=== PATIENT | male | born 1945 | race African-American/Black ===

== ENCOUNTER 2017-09-12 16:22 | Inpatient (IN) | payer MEDICARE ==
[2017-09-12 17:12] LABS: #Basophils 0.1 thou/uL (0.0-0.2); #Eosinphils 0.3 thou/uL (0.0-0.7); #Lymphocytes 2.5 thou/uL (1.20-3.40); #Monocytes 0.7 thou/uL (0.11-0.59); #Neutrophils 3.1 thou/uL (1.40-6.50); %Basophils 1.3 % (0.0-1.0); %Eosinophils 4.5 % (0.0-10.0); %Neutrophils 46.2 % (42.0-75.0); Hemoglobin 13.6 g/dL (14.0-18.0); Mean Corpuscular HGB CONC 31.9 g/dL (32.0-36.0); Mean Corpuscular Hemoglobin 29.6 pg (27.0-31.0); Mean Platelet Volume 8.8 fL (7.4-10.4); Platelet Count 140 thou/uL (130-400); RBC Distribution Width 13.1 % (11.5-14.5); Red Blood Cell (RBC) Count 4.58 mill/uL (4.70-6.10); White Blood Cell (WBC) Count 6.7 thou/uL (4.8-10.8)
[2017-09-12 17:18] LABS: INR-International Normal Ratio 1.7; Prothrombin Time 20.6 SEC (12.0-14.7)
--- NOTE | 2017-09-12 17:19 | RAD ---
FRONTAL RADIOGRAPH CHEST 09/12/17 COMPARISON: 06/02/15 HISTORY: Atrial fibrillation, lower extremity swelling. FINDINGS: The cardiac silhouette is prominent. There is no pneumothorax or pleural fluid. No lobar consolidatio n or alveolar edema. IMPRESSION: No focal consolidation or alveolar edema. Prominent cardiac silhouette. POS: [facility]
[2017-09-12 17:36] LABS: ALT (SGPT) 20 U/L (8-55); AST (SGOT) 23 U/L (5-34); Albumin 3.9 g/dL (3.4-4.8); Alkaline Phosphatase 61 U/L (40-150); Anion Gap 11 mmol/L (10-20); BUN (Urea Nitrogen) 18 mg/dL (8.4-25.7); Bilirubin, Total 0.8 mg/dL (0.2-1.2); Calc. Creatinine Clearance 0 mL/min (70-130); Calcium 9.1 mg/dL (7.8-10.44); Carbon Dioxide 28 mmol/L (23-31); Chloride 105 mmol/L (98-107); Estimated GFR-MDRD 57; Globulin 3.8 g/dL (2.4-3.5); Glucose 116 mg/dL (83-110); Potassium 4.1 mmol/L (3.5-5.1); Protein, Total 7.7 g/dL (5.8-8.1); Sodium 140 mmol/L (136-145)
[2017-09-12 17:41] LABS: Troponin I 0.172 ng/mL (< 0.028)
[2017-09-12] MEDS ORDERED: Bisacodyl 5 MG TAB PO PRN (18:11)
[2017-09-12] MEDS ORDERED: Acetaminophen 650 MG Suppository PR PRN (18:11)
[2017-09-12] MEDS ORDERED: Acetaminophen 325 MG TAB PO PRN (18:11)
[2017-09-12] MEDS ORDERED: Guaifenesin DM 100-10/5 ML UDCUP PO PRN (18:11)
[2017-09-12] MEDS ORDERED: Milk Of Magnesia 30 ML UDCUP PO PRN (18:11)
[2017-09-12] MEDS ORDERED: Furosemide 20 MG/2 ML VIAL SLOW IVP SCH (18:15)
[2017-09-12 20:37] LABS: Troponin I 0.192 ng/mL (< 0.028)
[2017-09-12 23:47] LABS: Troponin I 0.183 ng/mL (< 0.028)
[2017-09-12] MEDS ORDERED: Carvedilol 25 MG TAB PO SCH (23:59)
[2017-09-13 05:19] LABS: #Eosinphils 0.3 thou/uL (0.0-0.7); #Lymphocytes 2.9 thou/uL (1.20-3.40); #Monocytes 0.8 thou/uL (0.11-0.59); #Neutrophils 2.9 thou/uL (1.40-6.50); %Basophils 0.6 % (0.0-1.0); %Eosinophils 4.3 % (0.0-10.0); %Lymphocytes 41.1 % (21.0-51.0); %Monocytes 11.6 % (0.0-10.0); %Neutrophils 42.4 % (42.0-75.0); Hemoglobin 12.9 g/dL (14.0-18.0); Mean Corpuscular HGB CONC 32.5 g/dL (32.0-36.0); Mean Corpuscular Hemoglobin 30.2 pg (27.0-31.0); Mean Corpuscular Volume 92.8 fl (80.0-94.0); Mean Platelet Volume 9.3 fL (7.4-10.4); Platelet Count 140 thou/uL (130-400); RBC Distribution Width 13.2 % (11.5-14.5); Red Blood Cell (RBC) Count 4.28 mill/uL (4.70-6.10); White Blood Cell (WBC) Count 6.9 thou/uL (4.8-10.8)
[2017-09-13 05:27] LABS: INR-International Normal Ratio 1.9; Prothrombin Time 22.3 SEC (12.0-14.7)
[2017-09-13 05:30] LABS: Anion Gap 12 mmol/L (10-20); BUN (Urea Nitrogen) 17 mg/dL (8.4-25.7); Calc. Creatinine Clearance 83 mL/min (70-130); Calcium 9.2 mg/dL (7.8-10.44); Carbon Dioxide 28 mmol/L (23-31); Chloride 104 mmol/L (98-107); Estimated GFR-MDRD 58; Glucose 115 mg/dL (83-110); Magnesium 2.2 mg/dL (1.6-2.6); Potassium 3.8 mmol/L (3.5-5.1); Sodium 140 mmol/L (136-145)
--- NOTE | 2017-09-13 06:04 | HP ---
PRIMARY CARE PHYSICIAN: Unknown. PRESENTING COMPLAINT: Leg swelling. HISTORY OF PRESENT ILLNESS: The patient is a 79--year-old gentleman with a past medical history of c ardiomyopathy, hypertension, atrial fibrillation, chronic, on anticoagulation, who presented to the e mergency room due to lower extremity edema. He reports the swelling started about 6 months ago and h as likely stayed the same. However, due to continued blisters and ulcers on his lower extremities, h is made a call to bring him to the emergency room. He denies chest pain, shortness of breath, f liu or chills. He has no orthopnea and uses only 1 pillow at night. He has no PND or palpitations . He has no urinary or abdominal symptoms. When EMS was called and en route to the hospital, he was noted to have an episode of ventricular tachycardia with PVCs, so decision was made to admit him for observation. PAST MEDICAL HISTORY: Chronic atrial fibrillation, hypertension, cardiomyopathy, CKD. He is also st atus post IVC filter, hyperlipidemia. SOCIAL HISTORY: Former smoker, does not drink alcohol, does not use illicit drugs. ALLERGIES: None. Does not know his PCP's name, but states he is in [facility]. FAMILY HISTORY: Father of heart disease. Mom had hypertension. He had a son who at 17 ye ars old, (unknown cause). REVIEW OF SYSTEMS: Constitutional: Negative for fevers or chills. Eyes: Negative for any changes in vision. HEENT: Negative for ear pain or discharge, sore throat. Cardiovascular: Negative. Ref er to HPI. Respiratory: Denies shortness of breath, cough, sputum production. Gastrointestinal: N egative. Genitourinary: Negative. Musculoskeletal: Positive for bilateral leg swelling. Skin: P ositive for lower extremity blisters and ulcers. Hematology: Negative. Neurologic: Negative. Psychiatric: Negative. Allergy/immunology negative. PHYSICAL EXAMINATION: GENERAL: Not in any acute distress, lying comfortably in bed. HEENT: Normocephalic and atraumatic. Moist oral mucosa. Not pale, anicteric. CARDIOVASCULAR: S1 and S2. Irregularly irregular rhythm. No murmurs, rubs or gallops appreciated. RESPIRATORY: Chest is clear to auscultation bilaterally. No wheezes or rales. ABDOMEN: Soft, bowel sounds present, no organomegaly, nontender, nondistended. GENITOURINARY: Deferred. MUSCULOSKELETAL: Bilateral lower extremity edema with signs of chronic venostasis and about 2 x 2 cm with ulcers of varying sizes around his lower extremities, largest being about half an inch by half an inch. No signs of acute infection. SKIN: See above. NEUROLOGIC: Alert and well oriented. No focal deficits. LABORATORY DATA: CBC was unremarkable. Serum chemistry with creatinine of 1.47 (patient has chronic kidney disease). INR 1.7, troponin 0.172. BNP 185. EKG atrial fibrillation. Chest x-ray, no foca l consolidation or alveolar edema. Prominent cardiac silhouette. ASSESSMENT AND PLAN: 1. Bilateral lower extremity edema likely secondary to chronic venous stasis. Patient notes with a history of congestive heart failure and has no signs of exacerbation. Last TTE was done in 2012 and showed an ejection fraction of 50% to 55%. We will give one dose of IV furosemide, encouraged to farhad vate limbs and get a repeat TTE. We will also get a TSH and wound care for his lower extremity ulcer s. No signs of acute infection, so we will defer antibiotics for now. 2. Ventricular tachycardia with premature ventricular contractions. The patient is now asymptomatic . He was reported to have had ventricular tachycardia with PVC on the way to the hospital. We will admit for observation on tele and will consider Cardiology consult depending on results of investigat ion. 3. Elevated troponin could be from renal impairment. This will be trended and the patient will be m onitored on tele. He is currently chest pain free. 4. Chronic atrial fibrillation. The patient on diltiazem and Coumadin; however, INR is still therap eutic. Continue diltiazem and metoprolol (patient's outpatient regimen). Continue Coumadin as well and monitor INR daily. 5. Hypertension, fairly well controlled for now, we will continue diltiazem and metoprolol. 6. Chronic kidney disease. We will monitor creatinine.
[2017-09-13] MEDS ORDERED: Potassium Chloride 10 MEQ TAB PO SCH (08:00)
[2017-09-13] MEDS ORDERED: Furosemide 40 MG TAB PO SCH (09:00)
[2017-09-13] MEDS: Lisinopril 5 MG TAB PO SCH ×2 (09:39→20:17)
[2017-09-13] MEDS: Carvedilol 25 MG TAB PO SCH ×2 (09:40→20:18)
--- NOTE | 2017-09-13 13:50 | PDOC.PN ---
- Subjective Encounter Start Date: 09/13/17 Encounter Start Time: 10:15 Subjective: poor historian -: no chest pain or palp -: appears to have sob, no prior h/o sleep apnea - Objective MAR Reviewed: Yes Vital Signs & Weight: Vital Signs (12 hours) Temp Pulse Resp BP Pulse Ox 09/13/17 11:30 97.4 F L 76 16 177/89 H 92 L 09/13/17 09:39 76 09/13/17 08:00 97.6 F 76 20 09/13/17 07:08 97.9 F 79 24 H 171/98 H 100 09/13/17 04:15 97.6 F 76 20 163/96 H 100 Weight Admit Weight 277 lb 12.8 oz Weight 280 lb I&O: 09/12/17 09/13/17 09/14/17 06:59 06:59 06:59 Intake Total 1751 Output Total 650 Balance 1101 Result Diagrams: 09/13/17 04:13 09/13/17 04:13 Phys Exam - Physical Examination HEENT: PERRLA, moist MMs Neck: no JVD, supple Respiratory: no wheezing rales+ Cardiovascular: RRR, no significant murmur Gastrointestinal: soft, non-tender, positive bowel sounds Musculoskeletal: pulses present, edema present Neurological: non-focal, moves all 4 limbs Dx/Plan (1) Non-sustained ventricular tachycardia Code(s): I47.2 - VENTRICULAR TACHYCARDIA Status: Acute (2) CHF exacerbation Code(s): I50.9 - HEART FAILURE, UNSPECIFIED Status: Acute Qualifiers: Congestive heart failure type: unspecified congestive heart failure type Qualified Code(s): I50.9 - Heart failure, unspecified (3) H/O: CVA (cerebrovascular accident) Code(s): Z86.73 - PRSNL HX OF TIA (TIA), AND CEREB INFRC W/O RESID DEFICITS Status: Chronic (4) Afib Code(s): I48.91 - UNSPECIFIED ATRIAL FIBRILLATION Status: Chronic Qualifiers: Atrial fibrillation type: chronic Qualified Code(s): I48.2 - Chronic atrial fibrillation (5) HTN (hypertension) Code(s): I10 - ESSENTIAL (PRIMARY) HYPERTENSION Status: Chronic Qualifiers: Hypertension type: essential hypertension Qualified Code(s): I10 - Essential (primary) hypertension (6) Obesity Code(s): E66.9 - OBESITY, UNSPECIFIED Status: Chronic Qualifiers: Obesity classification: adult class 3 (BMI >= 40) Body mass index: BMI 40.0 -44.9 (7) Demand ischemia of myocardium Code(s): I24.8 - OTHER FORMS OF ACUTE ISCHEMIC HEART DISEASE Status: Acute (8) CKD (chronic kidney disease) stage 3, GFR 30-59 ml/min Code(s): N18.3 - CHRONIC KIDNEY DISEASE, STAGE 3 (MODERATE) Status: Chronic - Plan gentle diuresis -: is on coreg, coumadin -: echo, ?sleep apnea -: cardio consult -: will switch to inpatient status if ok with cardiology * . Review of Systems - Medications/Allergies Allergies/Adverse Reactions: Allergies Allergy/AdvReac Type Severity Reaction Status Date / Time No Known Allergies Allergy Verified 09/12/17 20:14 Medications: Current Medications Acetaminophen (Tylenol) 650 mg PO Q4H PRN PRN Reason: Headache/Fever or Pain Acetaminophen (Tylenol) 650 mg [place] Q4H PRN PRN Reason: Headache/Fever or Pain Aspirin (Aspirin Chewable) 81 mg PO DAILY [facility] Last Admin: 09/13/17 09:39 Dose: 81 mg Bisacodyl (Dulcolax) 10 mg PO DAILYPRN PRN PRN Reason: Constipation Carvedilol (Coreg) 12.5 mg PO BID [facility] Last Admin: 09/13/17 09:40 Dose: 12.5 mg Furosemide (Lasix) 40 mg SLOW IVP 0600,1400 [facility] Guaifenesin/Dextromethorphan (Robitussin Dm) 15 ml PO Q4H PRN PRN Reason: Cough Last Admin: 09/12/17 20:28 Dose: 15 ml Lisinopril (Zestril) 5 mg PO BID [facility] Last Admin: 09/13/17 09:39 Dose: 5 mg Magnesium Hydroxide (Milk Of Magnesium) 30 ml PO DAILYPRN PRN PRN Reason: Constipation Potassium Chloride (Klor-Con 10) 10 meq PO QAM-WM [facility] Last Admin: 09/13/17 09:40 Dose: 10 meq Sodium Chloride (Flush - Normal Saline) 10 ml IVF Q12HR [facility] Sodium Chloride (Flush - Normal Saline) 10 ml IVF PRN PRN PRN Reason: Saline Flush Warfarin Sodium (Coumadin) 7.5 mg PO SuMoWeFrSa@1700 D[facility] Warfarin Sodium (Coumadin) 5 mg PO TuTh@1700 D[facility]
[2017-09-13] MEDS: Furosemide 40 MG/4 ML VIAL SLOW IVP SCH (15:54)
--- NOTE | 2017-09-13 16:50 | CON ---
DATE OF CONSULTATION: 09/13/2017 REASON FOR CONSULTATION: Diastolic congestive heart failure, ventricular tachycardia. HISTORY OF PRESENT ILLNESS: Mr. Orr is a very pleasant 72-year-old gentleman, who has a long histo ry of diastolic congestive heart failure. The patient apparently had an ambulance called because he had severe lower extremity edema and was unable to really ambulate. He was brought to the hospital a fter he was found to have an episode of nonsustained ventricular tachycardia on an EKG. We are being consulted for further management. He is not having chest pain or pressure. He does have shortness of breath. The peripheral edema was intractable and was not responding to oral diuretics. PAST MEDICAL HISTORY: History of diastolic congestive heart failure. He was seen in the hospital in 2012. Evaluation of this status revealed apical left ventricular hypertrophy, but no obstruction. He had chronic atrial fibrillation and normal left ventricular systolic function with evidence of armani stolic dysfunction. He has been maintained on Coumadin. The patient underwent stress testing in 3, which did not show ischemia. The patient has continued to have edema for which he has been maintained on furosemide although appar ently has been getting more difficult to control. Most recent echocardiogram in 2016 revealed an ejection fraction of 65-70%, moderate to severe left v entricular hypertrophy, left atrial enlargement, mild mitral regurgitation, mild aortic insufficiency . ALLERGIES: None known. HOME MEDICATIONS: 1. Furosemide 40 mg twice a day. 2. Lisinopril 5 mg twice a day. 3. Potassium. 4. Carvedilol 12.5 mg twice a day. 5. Coumadin 5 mg at 7:00 p.m. alternating with 7.5 mg a day. REVIEW OF SYSTEMS: Constitutional: No significant weight gain or loss. Vision: No changes. Heari ng: No changes. Pulmonary: No cough or wheezing. Gastrointestinal: No nausea, vomiting, or diarr hea. Skin: No rashes. Neurologic: No unilateral weakness or numbness. Psychiatric: No unusual d epression or anxiety. Hematologic: No unusual bruising. Genitourinary: No burning with urination. Musculoskeletal: No unusual joint pains. PHYSICAL EXAMINATION: GENERAL: Pleasant gentleman. 5 foot 9 inches tall, 280 pounds, awake and alert. HEENT: Sclerae nonicteric. Mouth, mucous membranes moist. NECK: Supple, no lymphadenopathy. LUNGS: Clear. No wheezing, rales, or rhonchi. CARDIAC: Irregularly irregular. I do not hear a murmur, rub, or gallop. ABDOMEN: Soft, nontender. No hepatosplenomegaly. EXTREMITIES: No clubbing or cyanosis. There is severe edema. SKIN: Warm and dry. Radial pulses are strong on the right. I do not feel femoral pulses. I do not feel pedal pulses, but he has quite a bit of edema in his feet. IMAGING: EKG, atrial fibrillation with nonsustained ventricular tachycardia 9 beats with other episo krista also noted. PERTINENT LABORATORY DATA: Hemoglobin is 12.9. The creatinine is 1.45. Troponin is 0.192. BNP 185 . Chest x-ray shows cardiomegaly with evidence of pulmonary vascular congestion to my interpretation . ASSESSMENT: 1. Chronic atrial fibrillation. 2. Diastolic heart failure, decompensated, refractory to oral medicines. 3. Nonsustained ventricular tachycardia. 4. Renal failure stage 3. 5. Indeterminate troponin, probably related to demand ischemia/congestive heart failure. PLAN: 1. Echocardiogram pending. 2. Stress testing. 3. May need cardiac catheterization. At the present time, I do feel femoral pulses may need radial catheterization. 4. May need electrophysiology consultation.
[2017-09-13] MEDS ORDERED: Potassium Chloride 20 MEQ TAB PO SCH (17:00)
[2017-09-13] MEDS ORDERED: Warfarin Sodium 7.5 MG TAB PO SCH (17:00)
[2017-09-13] MEDS ORDERED: Magnesium Sulfate 3 GM in Sodium Chloride 0.9% 100 ML IVPB SCH (18:00)
[2017-09-14] MEDS: Furosemide 40 MG/4 ML VIAL SLOW IVP SCH ×2 (06:13→13:49)
[2017-09-14 06:19] LABS: INR-International Normal Ratio 1.7; Prothrombin Time 20.4 SEC (12.0-14.7)
[2017-09-14 06:48] LABS: Anion Gap 11 mmol/L (10-20); BUN (Urea Nitrogen) 15 mg/dL (8.4-25.7); Calc. Creatinine Clearance 88 mL/min (70-130); Carbon Dioxide 26 mmol/L (23-31); Chloride 105 mmol/L (98-107); Estimated GFR-MDRD 62; Glucose 119 mg/dL (83-110); Magnesium 2.8 mg/dL (1.6-2.6); Potassium 4.1 mmol/L (3.5-5.1); Sodium 138 mmol/L (136-145)
[2017-09-14 06:50] LABS: Eosinophils 2 % (0-10); Hemoglobin 13.1 g/dL (14.0-18.0); Lymphocytes 32 % (21-51); MDiff Complete? YES; Mean Corpuscular HGB CONC 33.2 g/dL (32.0-36.0); Mean Corpuscular Hemoglobin 30.5 pg (27.0-31.0); Mean Corpuscular Volume 91.6 fl (80.0-94.0); Mean Platelet Volume 9.5 fL (7.4-10.4); Monocytes 17 % (0-10); Neutrophil 49 % (42-75); Platelet Count 132 thou/uL (130-400); RBC Distribution Width 13.1 % (11.5-14.5); Red Blood Cell (RBC) Count 4.31 mill/uL (4.70-6.10); White Blood Cell (WBC) Count 8.2 thou/uL (4.8-10.8)
[2017-09-14] MEDS: Lisinopril 5 MG TAB PO SCH ×2 (08:18→20:01)
[2017-09-14] MEDS: Carvedilol 25 MG TAB PO SCH ×2 (09:07→11:03)
[2017-09-14] MEDS: Potassium Chloride 20 MEQ TAB PO SCH ×2 (11:02→17:08)
[2017-09-14] MEDS: Enoxaparin Sodium 100 MG/ML SYRINGE SC SCH ×2 (11:03→20:01)
--- NOTE | 2017-09-14 12:32 | PDOC.PN ---
- Subjective Encounter Start Date: 09/14/17 Encounter Start Time: 09:50 Subjective: is getting stress test -: no chest pain, sob is better - Objective MAR Reviewed: Yes Vital Signs & Weight: Vital Signs (12 hours) Temp Pulse Resp BP Pulse Ox 09/14/17 08:00 98.0 F 77 18 09/14/17 07:27 98.0 F 77 18 139/93 H 98 09/14/17 04:00 99.1 F 80 20 141/80 H 96 Weight Weight 276 lb 11.2 oz I&O: 09/13/17 09/14/17 09/15/17 06:59 06:59 06:59 Intake Total 2055 Output Total 2725 Balance -670 Result Diagrams: 09/14/17 06:05 09/14/17 06:05 Phys Exam - Physical Examination HEENT: PERRLA, moist MMs Neck: no JVD, supple Respiratory: no wheezing rales+ Cardiovascular: RRR, no significant murmur Gastrointestinal: soft, non-tender, positive bowel sounds Musculoskeletal: pulses present, edema present Neurological: non-focal, moves all 4 limbs Psychiatric: A&O x 3 Dx/Plan (1) Non-sustained ventricular tachycardia Code(s): I47.2 - VENTRICULAR TACHYCARDIA Status: Resolved (2) CHF exacerbation Code(s): I50.9 - HEART FAILURE, UNSPECIFIED Status: Acute Qualifiers: Congestive heart failure type: diastolic Qualified Code(s): I50.33 - Acute on chronic diastolic (congestive) heart failure (3) H/O: CVA (cerebrovascular accident) Code(s): Z86.73 - PRSNL HX OF TIA (TIA), AND CEREB INFRC W/O RESID DEFICITS Status: Chronic (4) Afib Code(s): I48.91 - UNSPECIFIED ATRIAL FIBRILLATION Status: Chronic Qualifiers: Atrial fibrillation type: chronic Qualified Code(s): I48.2 - Chronic atrial fibrillation (5) HTN (hypertension) Code(s): I10 - ESSENTIAL (PRIMARY) HYPERTENSION Status: Chronic Qualifiers: Hypertension type: essential hypertension Qualified Code(s): I10 - Essential (primary) hypertension (6) Obesity Code(s): E66.9 - OBESITY, UNSPECIFIED Status: Chronic Qualifiers: Obesity classification: adult class 3 (BMI >= 40) Body mass index: BMI 40.0 -44.9 (7) Demand ischemia of myocardium Code(s): I24.8 - OTHER FORMS OF ACUTE ISCHEMIC HEART DISEASE Status: Acute (8) CKD (chronic kidney disease) stage 3, GFR 30-59 ml/min Code(s): N18.3 - CHRONIC KIDNEY DISEASE, STAGE 3 (MODERATE) Status: Chronic - Plan is on lasix iv q12h -: lovenox 100mg q12h -: on asp, coreg and lisinopril -: await stress test, has good ef on echo around 55% -: will f/u * . Review of Systems - Medications/Allergies Allergies/Adverse Reactions: Allergies Allergy/AdvReac Type Severity Reaction Status Date / Time No Known Allergies Allergy Verified 09/12/17 20:14 Medications: Current Medications Acetaminophen (Tylenol) 650 mg PO Q4H PRN PRN Reason: Headache/Fever or Pain Acetaminophen (Tylenol) 650 mg [place] Q4H PRN PRN Reason: Headache/Fever or Pain Aspirin (Aspirin Chewable) 81 mg PO DAILY [facility] Last Admin: 09/14/17 08:18 Dose: 81 mg Bisacodyl (Dulcolax) 10 mg PO DAILYPRN PRN PRN Reason: Constipation Carvedilol (Coreg) 12.5 mg PO BID [facility] Last Admin: 09/14/17 11:03 Dose: 12.5 mg Enoxaparin Sodium (Lovenox) 100 mg SC 0900,2100 [facility] Last Admin: 09/14/17 11:03 Dose: 100 mg Furosemide (Lasix) 40 mg SLOW IVP 0600,1400 [facility] Last Admin: 09/14/17 06:13 Dose: 40 mg Guaifenesin/Dextromethorphan (Robitussin Dm) 15 ml PO Q4H PRN PRN Reason: Cough Last Admin: 09/12/17 20:28 Dose: 15 ml Lisinopril (Zestril) 5 mg PO BID [facility] Last Admin: 09/14/17 08:18 Dose: 5 mg Magnesium Hydroxide (Milk Of Magnesium) 30 ml PO DAILYPRN PRN PRN Reason: Constipation Potassium Chloride (K-Dur) 20 meq PO BID[facility] Last Admin: 09/14/17 11:02 Dose: 20 meq Sodium Chloride (Flush - Normal Saline) 10 ml IVF Q12HR [facility] Last Admin: 09/14/17 11:03 Dose: 10 ml Sodium Chloride (Flush - Normal Saline) 10 ml IVF PRN PRN PRN Reason: Saline Flush
[2017-09-14] MEDS ORDERED: Regadenoson 0.4 MG/5 ML SYRINGE ONE (13:46)
[2017-09-15 05:30] LABS: #Eosinphils 0.2 thou/uL (0.0-0.7); #Lymphocytes 2.8 thou/uL (1.20-3.40); #Monocytes 1.1 thou/uL (0.11-0.59); #Neutrophils 3.3 thou/uL (1.40-6.50); %Basophils 0.4 % (0.0-1.0); %Eosinophils 2.3 % (0.0-10.0); %Lymphocytes 37.6 % (21.0-51.0); %Monocytes 14.8 % (0.0-10.0); %Neutrophils 44.9 % (42.0-75.0); Hemoglobin 12.7 g/dL (14.0-18.0); Mean Corpuscular HGB CONC 32.4 g/dL (32.0-36.0); Mean Corpuscular Hemoglobin 29.9 pg (27.0-31.0); Mean Corpuscular Volume 92.4 fl (80.0-94.0); Mean Platelet Volume 9.3 fL (7.4-10.4); Platelet Count 132 thou/uL (130-400); RBC Distribution Width 13.2 % (11.5-14.5); Red Blood Cell (RBC) Count 4.25 mill/uL (4.70-6.10); White Blood Cell (WBC) Count 7.4 thou/uL (4.8-10.8)
[2017-09-15 05:35] LABS: INR-International Normal Ratio 1.5; PTT 51.6 SEC (22.9-36.1); Prothrombin Time 18.8 SEC (12.0-14.7)
[2017-09-15] MEDS: Furosemide 40 MG/4 ML VIAL SLOW IVP SCH ×2 (05:40→13:45)
[2017-09-15 05:59] LABS: Anion Gap 8 mmol/L (10-20); BUN (Urea Nitrogen) 21 mg/dL (8.4-25.7); Calc. Creatinine Clearance 76 mL/min (70-130); Calcium 8.6 mg/dL (7.8-10.44); Carbon Dioxide 29 mmol/L (23-31); Chloride 107 mmol/L (98-107); Estimated GFR-MDRD 52; Glucose 111 mg/dL (83-110); Magnesium 2.3 mg/dL (1.6-2.6); Potassium 4.1 mmol/L (3.5-5.1); Sodium 140 mmol/L (136-145)
[2017-09-15] MEDS: Potassium Chloride 20 MEQ TAB PO SCH ×2 (10:14→17:02)
[2017-09-15] MEDS: Carvedilol 25 MG TAB PO SCH ×2 (10:15→20:51)
[2017-09-15] MEDS: Lisinopril 5 MG TAB PO SCH ×2 (10:15→20:53)
[2017-09-15] MEDS: Enoxaparin Sodium 100 MG/ML SYRINGE SC SCH (10:15)
--- NOTE | 2017-09-15 12:09 | NM ---
RADIONUCLIDE STRESS REST MYOCARDIAL PERFUSION SCAN WITH CT ATTENUATION CORRECTION AND SPECT IMAGING LEFT VENTRICULAR WALL MOTION EVALUATION AND EJECTION FRACTION: HISTORY: Chest pain. FINDINGS: LexiScan protocol was used. There is very heterogeneous uptake of radiotracer throughout the left ve ntricular myocardium on the stress and rest images with dilatation of the left ventricle. No signifi cant reversibility is apparent. QGS analysis of gated SPECT images calculated the left ventricular ejection fraction at 53%. There i s some dyskinesis of the lateral wall. IMPRESSION: 1. Borderline ejection fraction of 53% without cause evident. 2. Probably normal myocardial perfusion scan showing no reliable evidence of ischemia. POS: [facility]
--- NOTE | 2017-09-15 13:43 | PRG ---
DATE OF SERVICE: 09/15/2017 SUBJECTIVE: Mr. Orr's status is stable. No chest pain or pressure noted. He continues to complai n of lower extremity edema. OBJECTIVE: VITAL SIGNS: Blood pressure 145/60, pulse 76-93, respirations 24, admission weight 280, current weig ht 272. LUNGS: Clear to auscultation. CARDIAC: Regular rate and rhythm. ABDOMEN: Soft, nontender, and nondistended. EXTREMITIES: 2+ pitting edema. Telemetry monitoring continues to show wide complex tachycardia. Stress-rest myocardial perfusion study, LVEF 52% with no ischemia present. IMPRESSION: 1. Chronic atrial fibrillation. 2. Wide complex tachycardia, likely nonsustained ventricular tachycardia. 3. Edema. 4. Pickwickian syndrome. RECOMMENDATIONS: The patient is currently on Coreg with continued episodes of wide complex tachycard ia. His stress study was negative for ischemia. It would certainly be prudent to recommend EP consu ltation. He may need angiography despite a normal stress test. We will leave it to the disposition of Dr. Amilcar Conner.
--- NOTE | 2017-09-15 18:08 | PDOC.PN ---
- Subjective Encounter Start Date: 09/15/17 Encounter Start Time: 12:00 Patient seen and examined. No new complaints. No overnight events. SOB on exertion + - Objective MAR Reviewed: Yes Vital Signs & Weight: Vital Signs (12 hours) Temp Pulse Resp BP Pulse Ox 09/15/17 15:27 99.2 F 73 18 134/82 100 09/15/17 11:38 99.4 F 80 18 125/66 100 09/15/17 08:00 98.3 F 88 18 09/15/17 07:25 98.3 F 88 18 128/70 60 L Weight Weight 272 lb I&O: 09/14/17 09/15/17 09/16/17 06:59 06:59 06:59 Intake Total 2055 923 590 Output Total 0728 1401 1 Balance -670 -667 136 Result Diagrams: 09/15/17 04:10 09/15/17 04:10 EKG Reviewed by me: Yes (Tele Afib) Phys Exam - Physical Examination Constitutional: NAD Respiratory: no wheezing, no rhonchi Scat rales at bases Cardiovascular: no rub, irregular Gastrointestinal: soft, non-tender, positive bowel sounds Musculoskeletal: edema present Neurological: moves all 4 limbs Dx/Plan - Plan IMPRESSION: 1. Acute on Chronic diastolic Heart failure exacerbation 2. NSVT 3. CKD 3 4. HTN 5. Morbid Obesity BMI 40.2/Dyslipidemia/h/o IVC filter/Afib on anticoagulation/ Elevated troponins due to demand ischemia / Negative Cardiolite stress test PLAN: * Cont diuresis * Cont Coreg * On Lovenox * Will keep NPO past MN for possible intervention * Cont to monitor * Add Fluid restriction * AM labs Review of Systems - Review of Systems Cardiovascular: negative: chest pain, palpitations, orthopnea, paroxysmal nocturnal dyspnea, edema, light headedness Gastrointestinal: negative: Nausea, Vomiting, Abdominal Pain, Diarrhea, Constipation, Melena, Hematochezia - Medications/Allergies Allergies/Adverse Reactions: Allergies Allergy/AdvReac Type Severity Reaction Status Date / Time No Known Allergies Allergy Verified 09/12/17 20:14 Medications: Current Medications Acetaminophen (Tylenol) 650 mg PO Q4H PRN PRN Reason: Headache/Fever or Pain Last Admin: 09/15/17 14:43 Dose: 650 mg Acetaminophen (Tylenol) 650 mg [place] Q4H PRN PRN Reason: Headache/Fever or Pain Aspirin (Aspirin Chewable) 81 mg PO DAILY [facility] Last Admin: 09/15/17 10:14 Dose: 81 mg Bisacodyl (Dulcolax) 10 mg PO DAILYPRN PRN PRN Reason: Constipation Carvedilol (Coreg) 12.5 mg PO BID [facility] Last Admin: 09/15/17 10:15 Dose: 12.5 mg Docusate Sodium (Colace) 100 mg PO BID [facility] Enoxaparin Sodium (Lovenox) 100 mg SC 0900 [facility] Last Admin: 09/15/17 10:15 Dose: 100 mg Furosemide (Lasix) 40 mg SLOW IVP 0600,1400 [facility] Last Admin: 09/15/17 13:45 Dose: 40 mg Guaifenesin (Mucinex) 600 mg PO Q12HR [facility] Guaifenesin/Dextromethorphan (Robitussin Dm) 15 ml PO Q4H PRN PRN Reason: Cough Last Admin: 09/12/17 20:28 Dose: 15 ml Lisinopril (Zestril) 5 mg PO BID [facility] Last Admin: 09/15/17 10:15 Dose: 5 mg Magnesium Hydroxide (Milk Of Magnesium) 30 ml PO DAILYPRN PRN PRN Reason: Constipation Pneumococcal 13-Valent Conj Vacc (Prevnar) 0.5 ml IM .ONCE ONE Stop: 09/16/17 09:01 Potassium Chloride (K-Dur) 20 meq PO BID[facility] Last Admin: 09/15/17 17:02 Dose: 20 meq Sodium Chloride (Flush - Normal Saline) 10 ml IVF Q12HR [facility] Last Admin: 09/15/17 10:16 Dose: Not Given Sodium Chloride (Flush - Normal Saline) 10 ml IVF PRN PRN PRN Reason: Saline Flush Last Admin: 09/15/17 05:40 Dose: 10 ml
[2017-09-15] MEDS: guaiFENesin ER 600 MG TAB PO SCH (20:52)
[2017-09-15] MEDS: Docusate 100 MG CAP PO SCH (20:53)
[2017-09-16 05:08] LABS: INR-International Normal Ratio 1.3; Prothrombin Time 15.9 SEC (12.0-14.7)
[2017-09-16 05:12] LABS: #Eosinphils 0.2 thou/uL (0.0-0.7); #Lymphocytes 2.6 thou/uL (1.20-3.40); #Monocytes 0.9 thou/uL (0.11-0.59); #Neutrophils 3.2 thou/uL (1.40-6.50); %Basophils 0.6 % (0.0-1.0); %Eosinophils 3.2 % (0.0-10.0); %Lymphocytes 37.3 % (21.0-51.0); %Monocytes 12.8 % (0.0-10.0); %Neutrophils 46.1 % (42.0-75.0); Hemoglobin 12.9 g/dL (14.0-18.0); Mean Corpuscular HGB CONC 33.4 g/dL (32.0-36.0); Mean Corpuscular Volume 92.7 fl (80.0-94.0); Mean Platelet Volume 9.6 fL (7.4-10.4); Platelet Count 134 thou/uL (130-400); RBC Distribution Width 12.9 % (11.5-14.5); Red Blood Cell (RBC) Count 4.16 mill/uL (4.70-6.10); White Blood Cell (WBC) Count 6.9 thou/uL (4.8-10.8)
[2017-09-16] MEDS: Furosemide 40 MG/4 ML VIAL SLOW IVP SCH (05:28)
[2017-09-16 05:34] LABS: Anion Gap 11 mmol/L (10-20); BUN (Urea Nitrogen) 19 mg/dL (8.4-25.7); Calc. Creatinine Clearance 82 mL/min (70-130); Calcium 8.7 mg/dL (7.8-10.44); Carbon Dioxide 26 mmol/L (23-31); Chloride 105 mmol/L (98-107); Estimated GFR-MDRD 58; Glucose 103 mg/dL (83-110); Potassium 4.2 mmol/L (3.5-5.1); Sodium 138 mmol/L (136-145)
[2017-09-16] MEDS ORDERED: Prevnar 13-Val Conj/PF 0.5 ML SYRINGE IM ONE (09:00)
[2017-09-16] MEDS: Carvedilol 25 MG TAB PO SCH ×2 (10:19→20:17)
[2017-09-16] MEDS: Potassium Chloride 20 MEQ TAB PO SCH (10:19)
[2017-09-16] MEDS: Docusate 100 MG CAP PO SCH ×2 (10:19→20:20)
[2017-09-16] MEDS: guaiFENesin ER 600 MG TAB PO SCH ×2 (10:20→20:19)
[2017-09-16] MEDS: Enoxaparin Sodium 100 MG/ML SYRINGE SC SCH (10:20)
[2017-09-16] MEDS: Lisinopril 5 MG TAB PO SCH ×2 (10:20→20:19)
--- NOTE | 2017-09-16 12:33 | PRG ---
DATE OF SERVICE: 09/16/2017 SUBJECTIVE: Mr. Orr is feeling better. His breathing is not labored. He has no chest pain. PHYSICAL EXAMINATION: VITAL SIGNS: Blood pressure 158/70, earlier was 113/75. Pulse is 60-70, it is irregular. LUNGS: Clear. CARDIAC: Irregularly irregular. ABDOMEN: Soft, nontender. EXTREMITIES: There is only minimal edema. His weight is down to 271 pounds from 280. The patient continues to have nonsustained ventricular tachycardia. ASSESSMENT: 1. Repetitive nonsustained ventricular tachycardia. 2. Normal left ventricular function. 3. Diastolic congestive heart failure, stable. 4. Stage 2 renal failure with creatinine 1.45. PLAN: 1. We will consult Electrophysiology. 2. Probably, he also has peripheral vascular disease. We will do ankle-brachial indices. 3. We will discuss with Dr. Quinn, Electrophysiology.
[2017-09-16] MEDS ORDERED: Communication Order-Pharmacy FS SCH (13:45)
--- NOTE | 2017-09-16 13:53 | ULT ---
BILATERAL LOWER EXTREMITY ARTERIAL DOPPLER EVALUATION WITH SPECTRAL ANALYSIS AND COLOR FLOW EVALUATIO N: 09/16/2017 HISTORY: Decreased pulses of the bilateral feet. Bilateral feet soreness. FINDINGS: Ruiz-scale, color-flow, Doppler evaluation, and spectral analysis of the bilateral lower extremity ar terial vessels is performed with 2D imaging. Triphasic wave-forms are seen in the common femoral arteries bilaterally with triphasic wave-forms se en in the mid left superficial femoral artery. However, there are otherwise biphasic as well as mono phasic wave-forms seen in the remainder of the bilateral lower extremity arterial vessels. There is a decrease in the peak systolic velocity measurements between the common femoral arteries as well as the bilateral profunda femoral and proximal superficial femoral arteries, suggesting significant athe rosclerotic vascular disease in these areas. Velocity measurements are otherwise symmetric between t he superficial femoral and profunda femoral arteries bilaterally. There is diminished peak systolic velocity in the left anterior tibial artery, which suggests significant atherosclerotic vascular dise ase. IMPRESSION: Diffuse atherosclerotic vascular disease, primarily based on biphasic and monophasic wave-forms seen throughout the bilateral lower extremity arterial vessels aside from each common femoral artery, whic h demonstrates triphasic arterial wave-forms. POS: [facility]
--- NOTE | 2017-09-16 14:10 | ADD-PRG ---
ADDENDUM SUBJECTIVE: Mr. Orr continues to have some nonsustained ventricular tachycardia. He has no chest pain or pressure. OBJECTIVE: VITAL SIGNS: Blood pressure 176/96, it is variable; however, pulse is in the 60s, it is atrial fibri llation. LUNGS: Clear. CARDIAC: Irregularly irregular. IMAGING DATA: Reviewing the stress test, there was heterogeneous uptake of the contrast, ejection fr action lower range of normal. ASSESSMENT: 1. Diastolic heart failure, improved. 2. Continued intermittent ventricular tachycardia. PLAN: Proceed the cardiac catheterization. Dr. Aggarwal will do from radial artery tomorrow. I discu ssed risks of stroke, heart attack, iodine allergy, loss of blood supply to the leg or kidney, stent thrombosis, stent restenosis. The patient understands and wishes to proceed, it will be arranged for tomorrow.
--- NOTE | 2017-09-16 15:40 | PDOC.PN ---
- Subjective Encounter Start Date: 09/16/17 Encounter Start Time: 14:30 Patient seen and examined. No new complaints. No overnight events - Objective MAR Reviewed: Yes Vital Signs & Weight: Vital Signs (12 hours) Temp Pulse Resp BP Pulse Ox 09/16/17 11:39 99.3 F 100 18 176/96 H 92 L 09/16/17 10:20 59 L 09/16/17 08:00 98.7 F 59 L 16 09/16/17 07:15 98.7 F 59 L 16 158/70 H 98 09/16/17 04:00 68 18 113/75 100 Weight Weight 271 lb 8 oz I&O: 09/15/17 09/16/17 09/17/17 06:59 06:59 06:59 Intake Total 923 708 Output Total 1401 1 Balance -478 707 Result Diagrams: 09/16/17 04:12 09/16/17 04:12 EKG Reviewed by me: Yes Phys Exam - Physical Examination Constitutional: NAD Respiratory: no wheezing, no rhonchi Cardiovascular: RRR, no rub Gastrointestinal: soft, non-tender, positive bowel sounds Musculoskeletal: edema present (improving) Neurological: moves all 4 limbs Dx/Plan - Plan IMPRESSION: 1. Acute on Chronic diastolic Heart failure exacerbation - on Lasix 2. NSVT 3. CKD 3 4. HTN 5. Morbid Obesity BMI 40.2/Dyslipidemia/h/o IVC filter/Afib on anticoagulation/ Elevated troponins due to demand ischemia / Negative Cardiolite stress test PLAN: * Cath in AM * Cont diuresis * on Coreg * On Lovenox * Will keep NPO past MN for possible intervention * Cont Fluid restriction * AM labs * Cardiology following Review of Systems - Review of Systems Respiratory: negative: Cough, Dry, Shortness of Breath, Hemoptysis, SOB with Excertion, Pleuritic Pain, Sputum, Wheezing Cardiovascular: negative: chest pain, palpitations, orthopnea, paroxysmal nocturnal dyspnea, edema, light headedness - Medications/Allergies Allergies/Adverse Reactions: Allergies Allergy/AdvReac Type Severity Reaction Status Date / Time No Known Allergies Allergy Verified 09/12/17 20:14 Medications: Current Medications Acetaminophen (Tylenol) 650 mg PO Q4H PRN PRN Reason: Headache/Fever or Pain Last Admin: 09/15/17 14:43 Dose: 650 mg Acetaminophen (Tylenol) 650 mg [place] Q4H PRN PRN Reason: Headache/Fever or Pain Aspirin (Aspirin Chewable) 81 mg PO DAILY [facility] Last Admin: 09/16/17 10:19 Dose: Not Given Bisacodyl (Dulcolax) 10 mg PO DAILYPRN PRN PRN Reason: Constipation Carvedilol (Coreg) 12.5 mg PO BID [facility] Last Admin: 09/16/17 10:19 Dose: Not Given Docusate Sodium (Colace) 100 mg PO BID [facility] Last Admin: 09/16/17 10:19 Dose: Not Given Enoxaparin Sodium (Lovenox) 100 mg SC 0900 [facility] Stop: 09/16/17 23:59 Last Admin: 09/16/17 10:20 Dose: Not Given Guaifenesin (Mucinex) 600 mg PO Q12HR [facility] Last Admin: 09/16/17 10:20 Dose: Not Given Guaifenesin/Dextromethorphan (Robitussin Dm) 15 ml PO Q4H PRN PRN Reason: Cough Last Admin: 09/12/17 20:28 Dose: 15 ml Sodium Chloride (Normal Saline 0.9%) 1,000 mls @ 80 mls/hr IV .[id number] [facility] Lisinopril (Zestril) 5 mg PO BID [facility] Last Admin: 09/16/17 10:20 Dose: Not Given Magnesium Hydroxide (Milk Of Magnesium) 30 ml PO DAILYPRN PRN PRN Reason: Constipation Miscellaneous Information (Communication Order-Pharmacy) 0 each FS ONE [facility] Stop: 09/16/17 23:59 Sodium Chloride (Flush - Normal Saline) 10 ml IVF Q12HR [facility] Last Admin: 09/16/17 15:30 Dose: 10 ml Sodium Chloride (Flush - Normal Saline) 10 ml IVF PRN PRN PRN Reason: Saline Flush Last Admin: 09/15/17 05:40 Dose: 10 ml
--- NOTE | 2017-09-16 18:39 | CON ---
DATE OF CONSULTATION: 09/16/2017 ELECTROPHYSIOLOGY CONSULTATION CONSULTING PHYSICIAN: Amilcar Conner M.D. REASON FOR CONSULTATION: Nonsustained ventricular tachycardia. HISTORY OF PRESENT ILLNESS: Mr. Orr is a pleasant 72-year-old gentleman with a long history of diastolic dysfunction and congestive heart failure. He was admitted to the hospital after calling an ambulance for increasing lower extremity edema, shortness of breath, and inability to ambulate. Since being admitted to the hospital and placed on monitors, it was found that he was having episodes of nonsustained ventricular tachycardia. He has a longstanding history of chronic atrial fibrillation, atrial flutter. Previously, his LV systolic function has been preserved. He denies any awareness of his arrhythmias. He has not had any palpitations or perceived heart racing. He denies any chest pain or pressure. He has not had any stroke or stroke-like symptoms. He reports that in generally, he continues to live inactive lifestyle and has not had any physical or exertional limitations up until the recent past. PAST MEDICAL HISTORY: 1. Diastolic dysfunction. 2. Chronic congestive heart failure, LVEF at 65% to 70% on echo in 2016. 3. Chronic atrial fibrillation and atrial flutter. 4. Negative stress test in 2013. REVIEW OF SYSTEMS: Constitutional: Negative for fevers, chills, night sweats, malaise. Positive for fluid retention and some recent weight gain. HEENT: Denies changes in vision, hearing, difficulty swallowing, or nosebleeds. Pulmonary: Denies recent respiratory illness, cough, wheezing, or reactive airway disease. Positive for shortness of breath. Cardiovascular: Negative for palpitations, heart racing, chest pain or pressure. Positive for increased filling in the extremities. Gastrointestinal: Negative for nausea, vomiting, diarrhea, or blood in the stool. Genitourinary: Negative for frequency, hesitancy, difficulty urinating, or blood in the urine. Skin: Negative for rashes. Increased bruising. Positive for ulcerations to both the lower extremities. Neurologic: Negative for stroke or stroke-like symptoms. Musculoskeletal: Positive for recent change in mobility status. ALLERGIES: No known allergies. HOME MEDICATIONS: Furosemide 40 mg b.i.d., lisinopril 5 mg b.i.d., potassium chloride daily, carvedilol 12.5 mg b.i.d., Coumadin 5 mg at 7:00 p.m. alternating with 7.5 mg daily. PHYSICAL EXAMINATION: GENERAL: The patient is a pleasant, obese -[place]ones[place] male in no acute distress. He is resting in bed comfortably. HEENT: His sclerae are anicteric. His affect is appropriate. His speech is clear. Oral mucous is moist and has adequate dentition. NECK: Supple without lymphadenopathy or thyromegaly. LUNGS: Clear to auscultation without crackles, wheezes or rhonchi. His respirations are even and unlabored and with good bilateral excursion. CARDIOVASCULAR: Heart rate is irregularly irregular. There is no significant murmur, rub, or gallop on auscultation. EXTREMITIES: His lower extremities are warm on the right to touch with bilateral edema. Of note, there are bandages to bilateral ankles for venous stasis ulcers. Abdominal exam is benign. There is no hepatosplenomegaly. Hepatojugular reflux is negative. LABORATORY RESULTS: WBC 6.9, hemoglobin 12.9, hematocrit 38.6, platelet count is 134. PT 15.9, INR 1.3. Sodium 138, potassium 4.2, chloride 105, carbon dioxide 26, BUN 19, creatinine 1.45, and glucose 103. Chest x-ray from 2017 shows cardiomegaly. Lexiscan stress test from 09/15/2017. EF estimated at 50% to 55%, normal perfusion. ASSESSMENT AND PLAN: 1. Chronic atrial arrhythmias, atrial fibrillation, and atypical atrial flutter. 2. Oral anticoagulation on warfarin. 3. Diastolic heart failure, decompensated. 4. Nonsustained ventricular tachycardia, frequent PVCs at the right bundle and left axis and morphology. 5. Indeterminant troponin elevation-patient to undergo left heart catheterization possibly tomorrow with Cardiology. IMPRESSION: Patient is having nonsustained ventricular tachycardia likely originating in the left ventricular outflow tract. Could consider ablation versus antiarrhythmic medication with flecainide. Pending left heart cath results. Patient has not been symptomatic with his episodes. I will await left heart catheterization results before any further recommendations. Dictated by ROSELIA Kent I was present and performed the exam / history taking and formulation of the above plan. Agree with above. . SHAYNE
[2017-09-17] MEDS: Lisinopril 5 MG TAB PO SCH ×2 (05:32→21:01)
[2017-09-17] MEDS: guaiFENesin ER 600 MG TAB PO SCH ×2 (05:33→21:00)
[2017-09-17] MEDS: Carvedilol 25 MG TAB PO SCH ×2 (05:33→21:00)
[2017-09-17] MEDS ORDERED: Sodium Chloride 0.9% 1,000 ML IV SCH (06:00)
[2017-09-17 06:22] LABS: Anion Gap 12 mmol/L (10-20); BUN (Urea Nitrogen) 24 mg/dL (8.4-25.7); Calc. Creatinine Clearance 85 mL/min (70-130); Carbon Dioxide 27 mmol/L (23-31); Chloride 105 mmol/L (98-107); Estimated GFR-MDRD 61; Glucose 119 mg/dL (83-110); Potassium 3.9 mmol/L (3.5-5.1); Sodium 140 mmol/L (136-145)
--- NOTE | 2017-09-17 09:58 | PRG ---
DATE OF SERVICE: 09/17/2017 SUBJECTIVE: Mr. Orr is doing well today. No chest pain or pressure. PHYSICAL EXAMINATION: VITAL SIGNS: Blood pressure 109/76, pulse 80, it is regular. LUNGS: Clear. CARDIAC: Normal S1 and S2. ASSESSMENT: 1. Diastolic heart failure, stable. 2. Repetitive ventricular tachycardia. PLAN: Proceed to cardiac catheterization will need to be done tomorrow. Dr. Aggarwal will plan on doi ng that tomorrow morning.
[2017-09-17] MEDS ORDERED: Enoxaparin Sodium 120 MG/0.8 ML SYRINGE SC SCH (10:00)
[2017-09-17] MEDS: Docusate 100 MG CAP PO SCH ×2 (10:35→23:51)
--- NOTE | 2017-09-17 16:17 | PDOC.CTH ---
<Keke De Souza - Last Filed: 09/17/17 16:15> Cardiology Progress Note - Subjective EP progress note Patient did well overnight. Remains bed bound. No new complaints. 12 point ROS negative. - Objective Vital Signs Temp Pulse Pulse Pulse Resp BP BP 09/17/17 15:05 97.9 F 89 15 09/17/17 12:23 98.0 F 84 18 09/17/17 10:50 70 80 142/64 H 09/17/17 08:08 79 58 L 124/75 09/17/17 08:00 98.9 F 82 16 09/17/17 07:08 98.6 F 64 18 09/17/17 05:32 82 128/75 BP BP Pulse Ox Pulse Ox 09/17/17 15:05 112/74 92 L 09/17/17 12:23 124/66 98 09/17/17 10:50 145/84 H 09/17/17 08:08 125/72 99 09/17/17 08:00 09/17/17 07:08 109/76 99 09/17/17 05:32 Weight 269 lb 9.6 oz 09/16/17 09/17/17 09/18/17 06:59 06:59 06:59 Intake Total 708 1240 Output Total 1 1 Balance 707 1239 - Physical Examination General/Neuro: NAD, other: (poor memory) Neck: no JVD present Lungs: unlabored respirations Heart: PMI normal, RRR Abdomen: NT/ND, soft Extremities: other: (venous stasis ulcers BLE) - Telemetry Telemetry Rhythm: SR - Labs Result Diagrams: 09/16/17 04:12 09/17/17 04:06 Troponin/CKMB CK-MB (CK-2) 6.0 ng/mL (0-6.6) 09/12/17 17:01 Troponin I 0.183 ng/mL (< 0.028) H 09/12/17 22:50 - Assessment/Plan NS-VT: no additional episodes captured with tele monitor. Plan is for LHC tomorrow. Will await results of LHC and plan for possible EPS or Saturday. <[facility] - Last Filed: 09/17/17 18:39> Cardiology Progress Note - Objective Vital Signs Temp Pulse Pulse Pulse Resp BP BP 09/17/17 15:05 97.9 F 89 15 09/17/17 12:23 98.0 F 84 18 09/17/17 10:50 70 80 142/64 H 145/84 H 09/17/17 08:08 79 58 L 124/75 125/72 09/17/17 08:00 98.9 F 82 16 09/17/17 07:08 98.6 F 64 18 BP Pulse Ox Pulse Ox 09/17/17 15:05 112/74 92 L 09/17/17 12:23 124/66 98 09/17/17 10:50 09/17/17 08:08 99 09/17/17 08:00 09/17/17 07:08 109/76 99 Weight 269 lb 9.6 oz 09/16/17 09/17/17 09/18/17 06:59 06:59 06:59 Intake Total 708 1240 Output Total 1 1 Balance 707 1239 - Labs Result Diagrams: 09/16/17 04:12 09/17/17 04:06 Troponin/CKMB CK-MB (CK-2) 6.0 ng/mL (0-6.6) 09/12/17 17:01 Troponin I 0.183 ng/mL (< 0.028) H 09/12/17 22:50 Attending Addendum - Attending Addendum I personally evaluated the patient and discussed the management with Ms Brice. I agree with the History, Examination, Assessment and Plan documented above with any addition or exceptions noted below.
[2017-09-17] MEDS ORDERED: Warfarin Sodium 5 MG TAB PO SCH (17:00)
--- NOTE | 2017-09-17 21:16 | PDOC.PN ---
- Subjective Encounter Start Date: 09/17/17 Encounter Start Time: 10:30 Patient seen and examined. No new complaints. No overnight events - Objective MAR Reviewed: Yes Vital Signs & Weight: Vital Signs (12 hours) Temp Pulse Pulse Pulse Resp BP BP 09/17/17 21:01 72 128/81 09/17/17 19:09 97.4 F L 72 16 09/17/17 15:05 97.9 F 89 15 09/17/17 12:23 98.0 F 84 18 09/17/17 10:50 70 80 142/64 H BP BP Pulse Ox 09/17/17 21:01 09/17/17 19:09 128/81 96 09/17/17 15:05 112/74 92 L 09/17/17 12:23 124/66 98 09/17/17 10:50 145/84 H Weight Weight 269 lb 9.6 oz I&O: 09/16/17 09/17/17 09/18/17 06:59 06:59 06:59 Intake Total 708 1240 Output Total 1 1 Balance 707 1239 Result Diagrams: 09/16/17 04:12 09/17/17 04:06 EKG Reviewed by me: Yes (Tele SR) Phys Exam - Physical Examination Constitutional: NAD Respiratory: no wheezing, no rhonchi Cardiovascular: RRR, no rub Gastrointestinal: soft, non-tender, positive bowel sounds Musculoskeletal: edema present Dx/Plan - Plan DVT proph w/lovenox, DVT proph w/SCDs IMPRESSION: 1. Acute on Chronic diastolic Heart failure exacerbation - improving 2. NSVT - EP following, Cath in AM, Possible EPS on or saturday 3. CKD 3 4. HTN 5. Morbid Obesity BMI 40.2/Dyslipidemia/h/o IVC filter/Afib on anticoagulation - Warfarin on hold - on Lovenox/ Elevated troponins due to demand ischemia / Negative Cardiolite stress test PLAN: * Cath in AM * on Coreg * NPO past MN * Cont Fluid restriction * AM labs * Cardiology/EP following Review of Systems - Review of Systems Respiratory: negative: Cough, Dry, Shortness of Breath, Hemoptysis, SOB with Excertion, Pleuritic Pain, Sputum, Wheezing Cardiovascular: negative: chest pain, palpitations, orthopnea, paroxysmal nocturnal dyspnea, edema, light headedness - Medications/Allergies Allergies/Adverse Reactions: Allergies Allergy/AdvReac Type Severity Reaction Status Date / Time No Known Allergies Allergy Verified 09/12/17 20:14 Medications: Current Medications Acetaminophen (Tylenol) 650 mg PO Q4H PRN PRN Reason: Headache/Fever or Pain Last Admin: 09/15/17 14:43 Dose: 650 mg Acetaminophen (Tylenol) 650 mg [place] Q4H PRN PRN Reason: Headache/Fever or Pain Aspirin (Ecotrin) 81 mg PO DAILY [facility] Bisacodyl (Dulcolax) 10 mg PO DAILYPRN PRN PRN Reason: Constipation Carvedilol (Coreg) 12.5 mg PO BID [facility] Last Admin: 09/17/17 21:00 Dose: 12.5 mg Docusate Sodium (Colace) 100 mg PO BID [facility] Last Admin: 09/17/17 10:35 Dose: 100 mg Famotidine (Pepcid) 20 mg PO BID [facility] Guaifenesin (Mucinex) 600 mg PO Q12HR [facility] Last Admin: 09/17/17 21:00 Dose: 600 mg Guaifenesin/Dextromethorphan (Robitussin Dm) 15 ml PO Q4H PRN PRN Reason: Cough Last Admin: 09/12/17 20:28 Dose: 15 ml Lisinopril (Zestril) 5 mg PO BID [facility] Last Admin: 09/17/17 21:01 Dose: 5 mg Magnesium Hydroxide (Milk Of Magnesium) 30 ml PO DAILYPRN PRN PRN Reason: Constipation Sodium Chloride (Flush - Normal Saline) 10 ml IVF Q12HR [facility] Last Admin: 09/17/17 21:03 Dose: 10 ml Sodium Chloride (Flush - Normal Saline) 10 ml IVF PRN PRN PRN Reason: Saline Flush Last Admin: 09/15/17 05:40 Dose: 10 ml
[2017-09-18 04:32] LABS: Anion Gap 11 mmol/L (10-20); BUN (Urea Nitrogen) 20 mg/dL (8.4-25.7); Calc. Creatinine Clearance 83 mL/min (70-130); Calcium 8.9 mg/dL (7.8-10.44); Carbon Dioxide 25 mmol/L (23-31); Chloride 108 mmol/L (98-107); Estimated GFR-MDRD 60; Glucose 111 mg/dL (83-110); Potassium 4.7 mmol/L (3.5-5.1); Sodium 139 mmol/L (136-145)
[2017-09-18] MEDS: Famotidine 20 MG TAB PO SCH ×2 (05:50→22:19)
[2017-09-18] MEDS: guaiFENesin ER 600 MG TAB PO SCH ×2 (05:51→22:19)
[2017-09-18] MEDS: Lisinopril 5 MG TAB PO SCH (05:51)
[2017-09-18] MEDS: Aspirin 81 mg Enteric Coated Tablet PO SCH (05:51)
[2017-09-18] MEDS: Carvedilol 25 MG TAB PO SCH ×2 (05:52→22:20)
[2017-09-18] MEDS: Docusate 100 MG CAP PO SCH ×2 (06:24→22:18)
[2017-09-18] MEDS ORDERED: Nitroglycerin 100MG/250ML BOT 250 ML ONE (07:19)
[2017-09-18] MEDS ORDERED: Heparin 10,000 UNITS/1 ML VIAL ONE (07:19)
[2017-09-18] MEDS ORDERED: Verapamil 5 MG/2 ML VIAL ONE (07:32)
[2017-09-18] MEDS ORDERED: Fentanyl 100 MCG/2 ML VIAL ONE (07:33)
[2017-09-18] MEDS ORDERED: Midazolam HCl 2 mg/2 ml Vial ONE (07:33)
[2017-09-18] MEDS ORDERED: Acetaminophen/Codeine 30-300mg Tablet PO PRN (08:31)
[2017-09-18] MEDS ORDERED: traMADol HCl 50 MG TAB PO PRN (08:31)
[2017-09-18] MEDS ORDERED: Sodium Chloride 0.9% 1,000 ML IV SCH (08:45)
--- NOTE | 2017-09-18 11:17 | PDOC.PN ---
- Subjective Encounter Start Date: 09/18/17 Encounter Start Time: 08:45 -: old records requested/rev Pt seen and examined chart reviewed in its entirety. This is my first visit with this patient Pt to cardiac cath lab technologist earlier for LHC. No balloons or stents, recommended medical management only. awaiting EP to decuide on any procedures. Pt accepted at [facility], need to do Dr to Dr when ready. no F/c, no N/V/d/V, no CP, no SOB 10 point ROS performed and neg for all systems except as per HPI - Objective MAR Reviewed: Yes Vital Signs & Weight: Vital Signs (12 hours) Temp Pulse Resp BP BP Pulse Ox 09/18/17 08:50 97.2 F L 66 20 112/75 92 L 09/18/17 08:00 97.2 F L 66 20 09/18/17 05:51 74 131/79 09/18/17 04:15 98.3 F 74 16 131/79 09/17/17 23:25 98.2 F 68 20 123/77 99 Weight Weight 270 lb 9.6 oz I&O: 09/17/17 09/18/17 09/19/17 06:59 06:59 06:59 Intake Total 1240 360 Output Total 1 Balance 1239 360 Result Diagrams: 09/16/17 04:12 09/18/17 04:11 Radiology Reviewed by me: Yes EKG Reviewed by me: Yes Phys Exam - Physical Examination Constitutional: NAD HEENT: PERRLA, moist MMs, sclera anicteric, oral pharynx no lesions Neck: no nodes, no JVD, supple, full ROM Respiratory: no wheezing, no rales, no rhonchi, clear to auscultation bilateral Cardiovascular: RRR, no significant murmur, no rub Gastrointestinal: soft, non-tender, no distention, positive bowel sounds Musculoskeletal: pulses present, edema present markedly improved Neurological: non-focal, normal sensation, moves all 4 limbs Lymphatic: no nodes Psychiatric: normal affect, A&O x 3 Skin: no rash, normal turgor, cap refill <2 seconds Deviation from normal: venous weeping to BLE, dressing not removed Dx/Plan (1) CHF exacerbation Code(s): I50.9 - HEART FAILURE, UNSPECIFIED Status: Acute Qualifiers: Congestive heart failure type: diastolic Qualified Code(s): I50.33 - Acute on chronic diastolic (congestive) heart failure Comment: much better, cardiology and EP following (2) Demand ischemia of myocardium Code(s): I24.8 - OTHER FORMS OF ACUTE ISCHEMIC HEART DISEASE Status: Acute (3) Afib Code(s): I48.91 - UNSPECIFIED ATRIAL FIBRILLATION Status: Chronic Qualifiers: Atrial fibrillation type: chronic Qualified Code(s): I48.2 - Chronic atrial fibrillation (4) CKD (chronic kidney disease) stage 3, GFR 30-59 ml/min Code(s): N18.3 - CHRONIC KIDNEY DISEASE, STAGE 3 (MODERATE) Status: Chronic (5) H/O: CVA (cerebrovascular accident) Code(s): Z86.73 - PRSNL HX OF TIA (TIA), AND CEREB INFRC W/O RESID DEFICITS Status: Chronic (6) HTN (hypertension) Code(s): I10 - ESSENTIAL (PRIMARY) HYPERTENSION Status: Chronic Qualifiers: Hypertension type: essential hypertension Qualified Code(s): I10 - Essential (primary) hypertension (7) Obesity Code(s): E66.9 - OBESITY, UNSPECIFIED Status: Chronic Qualifiers: Obesity classification: adult class 3 (BMI >= 40) Body mass index: BMI 40.0 -44.9 (8) Non-sustained ventricular tachycardia Code(s): I47.2 - VENTRICULAR TACHYCARDIA Status: Resolved - Plan cont current plan of care, PT/OT, respiratory therapy, incentive spirometry, out of bed/ambulate * . to rehab when okay with cardiology and EP. Continue to monitor until then
[2017-09-18] MEDS ORDERED: Iopamidol 370 76% 50 ML VIAL FS ONE (13:16)
[2017-09-18] MEDS ORDERED: Iopamidol 370 76% 100 ML VIAL ONE (13:16)
[2017-09-18] MEDS ORDERED: Warfarin Sodium 7.5 MG TAB PO SCH (17:00)
--- NOTE | 2017-09-18 17:46 | PRG ---
DATE OF SERVICE: 09/18/2017 ELECTROPHYSIOLOGY FOLLOWUP NOTE REFERRING PHYSICIAN: Amilcar Conner M.D. SUBJECTIVE: Mr. Orr underwent a left heart catheterization this morning. He tolerated the procedu re well. He is asymptomatic in the morning. OBJECTIVE: VITAL SIGNS: Blood pressure is 112/75, heart rate 66, respiratory rate 20, temperature 97.2 degrees Fahrenheit. GENERAL: Alert, oriented, morbidly obese man in no apparent distress. NECK: Supple. Jugular veins not distended. CHEST: Coarse, no crackles. CARDIOVASCULAR: Heart sounds are regular to rate and rhythm. No murmur or gallop. ABDOMEN: Benign. Bowel sounds positive. EXTREMITIES: Lower extremities without edema, clubbing or cyanosis. NEUROLOGIC: Patient is nonfocal. MUSCULOSKELETAL: No joint swelling or deformities. SKIN: Without rash. DATABASE: Left heart cath report demonstrates 50% LAD, 30% circumflex, 30% obtuse marginal, 40% RCA lesion. Ejection fraction about 50%. Telemetry strips reveal decreasing frequency of PVCs. ASSESSMENT AND PLAN: Ms. Orr is a pleasant 72-year-old man with history of diastolic congestive he art failure with normal left ventricular ejection fraction. Left heart catheterization today demonst rated nonocclusive coronary artery disease only. He also has stage 2 renal insufficiency. He presen phuong with nonsustained ventricular arrhythmia which are mildly symptomatic. He has chronic atrial fib rillation for which he is on Coumadin as an outpatient. His premature ventricular contractions are suggestive of left ventricular outflow tract origin. For now, he is on beta radha therapy which I will maximize seems to have decreasing frequency of ventri cular premature ventricular contractions since then. Hence, he has no occlusive (04:50) coronary art vero disease. Antiarrhythmic medication like flecainide could be a consideration, but first I would l bart to maximize beta radha before considering that. Alternatively, ablation could be considered, a lthough likely to be left sided ablation. This might be arranged as an outpatient. Thank you again for allowing me to participate in the care of this patient.
[2017-09-19 05:49] LABS: Anion Gap 10 mmol/L (10-20); BUN (Urea Nitrogen) 19 mg/dL (8.4-25.7); Calc. Creatinine Clearance 92 mL/min (70-130); Calcium 8.9 mg/dL (7.8-10.44); Carbon Dioxide 27 mmol/L (23-31); Chloride 107 mmol/L (98-107); Estimated GFR-MDRD 67; Glucose 115 mg/dL (83-110); Potassium 4.1 mmol/L (3.5-5.1); Sodium 140 mmol/L (136-145)
[2017-09-19] MEDS: Docusate 100 MG CAP PO SCH (09:00)
[2017-09-19] MEDS ORDERED: Lisinopril 5 MG TAB PO SCH ×2 (09:00→09:39)
[2017-09-19] MEDS: Carvedilol 25 MG TAB PO SCH (09:00)
[2017-09-19] MEDS: Furosemide 20 MG TAB PO SCH ×2 (09:00→14:45)
[2017-09-19] MEDS: Famotidine 20 MG TAB PO SCH (09:00)
[2017-09-19] MEDS: Aspirin 81 mg Enteric Coated Tablet PO SCH (09:01)
[2017-09-19] MEDS: guaiFENesin ER 600 MG TAB PO SCH (09:01)
[2017-09-19] MEDS ORDERED: Lisinopril 10 MG TAB PO SCH (10:00)
--- NOTE | 2017-09-19 10:36 | PRG ---
DATE OF SERVICE: 09/19/2017 SUBJECTIVE: Mr. rOr is doing well. No chest pain or pressure. His catheterization yesterday showed nonobstructive coronary artery disease. PHYSICAL EXAMINATION: VITAL SIGNS: Blood pressure is high 170/95, pulse 68, sinus, but he is still having intermittent tj tricular tachycardia. LUNGS: Clear. CARDIAC: Irregularly irregular. ABDOMEN: Soft and nontender. ASSESSMENT: 1. Atrial fibrillation, chronic. 2. Paroxysmal ventricular tachycardia. 3. Nonobstructive atherosclerotic heart disease. No obstruction in the coronaries. 4. Obesity. 5. Diastolic heart failure. 6. Hypertension. PLAN: 1. Increase lisinopril. 2. Resume anticoagulation in the form of Xarelto tomorrow. 3. We will go and stop Coumadin. 4. Consideration for transfer to [place] for ventricular tachycardia ablation.
--- NOTE | 2017-09-19 11:42 | PDOC.PN ---
- Subjective Encounter Start Date: 09/19/17 Encounter Start Time: 09:50 Pt feeling fine, denies complaint or event Pt did have 4 beat run of NSVT overnight and another 18 beat run this morning. no CP, npo SOB, no N/V/d/c, no F/c, no cough, no syncope Cardiology and EP to look into transfer to [facility] VT ablation 10 point ROS performed and neg for all systems except as above - Objective MAR Reviewed: Yes Vital Signs & Weight: Vital Signs (12 hours) Temp Pulse Resp BP BP Pulse Ox 09/19/17 09:00 68 09/19/17 08:15 97.5 F L 68 20 170/95 H 95 09/19/17 03:37 98.8 F 58 L 16 138/88 100 Weight Weight 270 lb 9.6 oz I&O: 09/18/17 09/19/17 09/20/17 06:59 06:59 06:59 Intake Total 360 1170 Balance 360 1170 Result Diagrams: 09/16/17 04:12 09/19/17 04:30 Radiology Reviewed by me: Yes EKG Reviewed by me: Yes Phys Exam - Physical Examination Constitutional: NAD HEENT: PERRLA, moist MMs, sclera anicteric, oral pharynx no lesions Neck: no nodes, no JVD, supple, full ROM Respiratory: no wheezing, no rales, no rhonchi, clear to auscultation bilateral Cardiovascular: RRR, no significant murmur, no rub Gastrointestinal: soft, non-tender, no distention, positive bowel sounds Musculoskeletal: pulses present, edema present Neurological: non-focal, normal sensation, moves all 4 limbs Lymphatic: no nodes Psychiatric: normal affect, A&O x 3 Skin: no rash, normal turgor, cap refill <2 seconds Dx/Plan (1) CHF exacerbation Code(s): I50.9 - HEART FAILURE, UNSPECIFIED Status: Acute Qualifiers: Congestive heart failure type: diastolic Qualified Code(s): I50.33 - Acute on chronic diastolic (congestive) heart failure Comment: much better, cardiology and EP following (2) Demand ischemia of myocardium Code(s): I24.8 - OTHER FORMS OF ACUTE ISCHEMIC HEART DISEASE Status: Acute (3) Afib Code(s): I48.91 - UNSPECIFIED ATRIAL FIBRILLATION Status: Chronic Qualifiers: Atrial fibrillation type: chronic Qualified Code(s): I48.2 - Chronic atrial fibrillation (4) CKD (chronic kidney disease) stage 3, GFR 30-59 ml/min Code(s): N18.3 - CHRONIC KIDNEY DISEASE, STAGE 3 (MODERATE) Status: Chronic (5) H/O: CVA (cerebrovascular accident) Code(s): Z86.73 - PRSNL HX OF TIA (TIA), AND CEREB INFRC W/O RESID DEFICITS Status: Chronic (6) HTN (hypertension) Code(s): I10 - ESSENTIAL (PRIMARY) HYPERTENSION Status: Chronic Qualifiers: Hypertension type: essential hypertension Qualified Code(s): I10 - Essential (primary) hypertension (7) Obesity Code(s): E66.9 - OBESITY, UNSPECIFIED Status: Chronic Qualifiers: Obesity classification: adult class 3 (BMI >= 40) Body mass index: BMI 40.0 -44.9 (8) Non-sustained ventricular tachycardia Code(s): I47.2 - VENTRICULAR TACHYCARDIA Status: Acute Comment: more runs overnight. ? transfer to [place] for VT ablation. - Plan cont current plan of care * .
[2017-09-19 11:44] VITALS: BMI 39.9
[2017-09-19 12:55] VITALS: BP 182/85
[2017-09-19 13:10] VITALS: TEMP 98.4
--- NOTE | 2017-09-19 15:20 | DIS ---
DATE OF ADMISSION: 09/12/2017 DATE OF DISCHARGE: 09/19/2017 PRIMARY CARE PHYSICIAN: Dr. Timur Parmar. PRIMARY HOURLY CAREGIVER: Dr. Amilcar Conner. DISCHARGE DIAGNOSES: 1. Nonsustained ventricular tachycardia. 2. Paroxysmal atrial fibrillation. 3. Obesity. 4. Essential hypertension. 5. Chronic kidney disease stage 3. 6. Demand ischemia. 7. Acute on chronic diastolic congestive heart failure. 8. Cerebrovascular disease with history of CVA. CONSULTATIONS: 1. Cardiology, Dr. Silas Magana followed up by Dr. Amilcra Conner. 2. Electrophysiology, Dr. Angel Quinn. PROCEDURES: On 09/16/2012, he underwent nuclear stress testing. This showed borderline ejection fra ction of 53%, probably normal myocardial perfusion scanning. On 09/16/2017, he underwent lower extre mity ultrasound that showed diffuse atherosclerotic vascular disease primarily based on biphasic and monophasic waveforms aside from his common femoral artery, which had good triphasic waveforms. On , he underwent 2D echocardiogram that showed LVEF of 50%-55%, technical difficult study with poor endocardial definition, moderate to severely dilated left atrium, mild mitral regurg, moderately thickened trileaflet aortic valve with decreased excursion, mild to moderate aortic regurgitation, m ild tricuspid regurgitation. On 09/18/2017, underwent a left heart catheterization with selective co ronary angiography that showed calcified coronaries, but only mild non-flow limiting coronary artery disease with elevated left ventricular end diastolic pressure, atrial fibrillation, normal LV functio n. HISTORY AND PHYSICAL: Mr. Orr is a 72-year-old -German male who presented to the emergenc y department with complaints of leg swelling. He had no chest pain or shortness of breath, fevers or chills, but did call EMS and while on route, he was noted to have episode of nonsustained ventricula r tachycardia, so he was placed in admission overnight. HOSPITAL COURSE: The patient was seen and examined by Dr. Treadwell and placed in observation. Cardi ology was consulted and saw him on 09/13/2017. Dr. Conner recommended echocardiogram, which was done and recommended stress testing, which was done and recommended electrophysiology consultation, which was requested. The patient remained stable with frequent PVCs and beta blockade. Ultimately on 09/16/2017, the sergio ent was seen by Dr. Angel Quinn with Electrophysiology and considered ablation versus antiarrhythmics with flecainide. He recommended left heart catheterization, which was arranged to be done on 2017, Saturday. The patient was watched over the weekend, 09/17/2017 to 09/18/2017, and remained stable. He underwen t coronary angiography that showed no flow limiting disease and recommended medical management, and s o the patient was increased on beta blockade and watched. Despite that, the patient had more episodes of nonsustained ventricular tachycardia overnight 018 to 09/19/2017 and arrangements were made to transfer him to [facility] in [facility] for ventricular tachycardia ablation. Dr. Quinn secured in transfer and discharge arrangements w ere made. PHYSICAL EXAMINATION: The patient was seen and examined on the day of discharge. DISCHARGE PLAN AND DISPOSITION: Discussed with the patient [id number] at the bedside. DISCHARGE MEDICATIONS: 1. Carvedilol 12.5 mg p.o. b.i.d. 2. Docusate 100 mg p.o. b.i.d. 3. Pepcid 20 mg p.o. b.i.d. 4. Lasix 40 mg p.o. b.i.d. 5. Guaifenesin DM p.r.n. 6. Guaifenesin ER 600 mg p.o. q.12 hours. 7. Lisinopril 10 mg p.o. daily. 8. Xarelto 20 mg p.o. q.p.m. 9. Tramadol 50 mg p.o. q.6 hours p.r.n. 10. Aspirin 81 mg daily. 11. Docusate 100 mg daily. FOLLOWUP APPOINTMENTS: 1. Primary care physician 1 week after discharge. 2. Dr. Quinn in 2-[address] Conner in 2-3 weeks. DISCHARGE ACTIVITY: Per cardiopulmonary limits. DISCHARGE DIET: Heart healthy. DISCHARGE CONDITION: Stable. DISPOSITION: The patient being discharged or transferred to [facility] in [place] to the [facility].
[2017-09-20] MEDS ORDERED: Lisinopril 10 MG TAB PO SCH (09:00)
--- NOTE | 2017-09-20 12:35 | PRG ---
DATE OF SERVICE: 09/19/2017 SUBJECTIVE: Mr. Orr seems to be doing fair one day after his left heart catheterization. He continued to have ectopy and there is an 18 beat nonsustained VT episodes noted this morning, minimal palpitations with that. OBJECTIVE DATA: VITAL SIGNS: Blood pressure is 170/95, heart rate 68, respirations 20, temperature 97.5 degrees Fahrenheit. GENERAL: He is an alert and oriented obese man, in no apparent distress. NECK: Supple. Jugular veins not distended. CHEST: Coarse without crackles. CARDIOVASCULAR: Heart sounds are irregularly irregular. S1, S2, is variable. No murmur or gallop. ABDOMEN: Benign. Bowel sounds positive. EXTREMITIES: Lower extremities without edema, clubbing or cyanosis, no hematoma noted at the groin. LABORATORY DATA: Electrolytes within normal range. BUN 19, creatinine 1.28. Telemetry strips again reveal atrial fibrillation with occasional wide complex tachycardia, which is nonsustained up to 18 beats are noted. ASSESSMENT AND PLAN: Mr. Orr is a 72-year-old man with history of diastolic congestive heart failure exacerbation, who presented with frequent PVCs and runs of nonsustained VT. He has had 18 beat run today. This is after maximizing his beta radha therapy. He underwent left heart catheterization yesterday demonstrating nonocclusive coronary artery disease. I was suggested by Dr. Conner to consider ablation of the patient's ventricular ectopy source. The ectopy seems to be monomorphic, also suggestive of LVOT or aorto-mitral continuity source. We will arrange transfer to [facility] for further management. 2. Chronic atrial fibrillation, stable, minimally symptomatic at this point on anticoagulation, previously on Coumadin, then switched to Xarelto. 3. Diastolic heart failure, now improving. 4. Hypertension, stable, but elevated blood pressures noted. Maximize beta radha therapy. 5. Obesity, chronic. Weight loss recommended. The patient will be transferred hopefully today, arrangement is being started. [facility]
[2017-09-20] MEDS ORDERED: Rivaroxaban 10 MG TAB PO SCH (18:00)
== END 2017-09-19 17:15 | disposition short-term general hospital (02) | DRG 286 ==
LOC: ERS 16:22 → 2SW 18:07 → OBSVTOIN 09-13 14:43 → 2NO 09-18 18:03
PROVIDERS: ADMIT Internal Medicine; ATTEND Internal Medicine
PROC: 4A023N7 Measurement of Cardiac Sampling and Pressure, Left Heart, Percutaneous Approach (ICD-10-PCS; principal; 2017-09-18)
PROC: B2111ZZ Fluoroscopy of Multiple Coronary Arteries using Low Osmolar Contrast (ICD-10-PCS; 2017-09-18)
DX: I47.2 Ventricular tachycardia (principal); I50.33 Acute on chronic diastolic (congestive) heart failure; L97.919 Non-pressure chronic ulcer of unspecified part of right lower leg with unspecified severity; I24.8 Other forms of acute ischemic heart disease; E66.01 Morbid (severe) obesity due to excess calories; I13.0 Hypertensive heart and chronic kidney disease with heart failure and stage 1 through stage 4 chronic kidney disease, or unspecified chronic kidney disease; Z68.41 Body mass index [BMI] 40.0-44.9, adult; L97.929 Non-pressure chronic ulcer of unspecified part of left lower leg with unspecified severity; I48.0 Paroxysmal atrial fibrillation; N18.3 Chronic kidney disease, stage 3 (moderate); I87.8 Other specified disorders of veins; I25.10 Atherosclerotic heart disease of native coronary artery without angina pectoris; Z86.73 Personal history of transient ischemic attack (TIA), and cerebral infarction without residual deficits; Z87.891 Personal history of nicotine dependence; Z79.01 Long term (current) use of anticoagulants; Z79.899 Other long term (current) drug therapy
CPT/HCPCS: 36415; 71045; 76942; 78452; 80048; 80053; 82553; 83735; 83880; 84443; 84484; 85025; 85610; 85730; 90471; 90670; 93005; 93017; 93306; 93458; 93798; 93923; 99152; 99153; A4216; A9500; C1760; C1769; G0009; G8978-GP-CM; G8979-GP-CI; G8987-GO-CK; G8988-GO-CI; J1644; J1650; J1940; J2250; J2785; J3010; J3475; J7050